=== PATIENT | male | born 1995 | race Caucasian/White ===

== ENCOUNTER 2018-12-08 11:00 | Emergency (ER) | payer SELFPAY ==
[~2018-12-08] VITALS: Ht 162.6 cm; Wt 108.4 kg
[2018-12-08 11:09] VITALS: Ht 162.6 cm; Wt 108.4 kg
[2018-12-08 12:53] LABS: CALCIUM 10.3 mg/dL (8.5-10.1); CARBON DIOXIDE 30.7 mmol/L (21-32); CHLORIDE SERUM 101 mmol/L (98-107); CREATININE SERUM 0.9 mg/dL (0.7-1.3); GFR1 > 60 mL/min; GLUCOSE SERUM 125 mg/dL (74-106); POTASSIUM SERUM 4.1 mmol/L (3.5-5.1); SODIUM SERUM 141 mmol/L (136-145)
[2018-12-08 12:55] LABS: PLATELET COUNT 267 x10^3mcL (130-400); RED CELL DISTRIBUTION WIDTH 13.1 % (11.5-14.5)
[2018-12-08 13:05] LABS: ALKALINE PHOSPHATASE 74 U/L (46-116); ALT/SGPT 54 U/L (16-63); AST/SGOT 10 U/L (15-37); BILIRUBIN TOTAL 0.8 mg/dL (0.20-1.00)
[2018-12-08 13:13] LABS: TOTAL PROTEIN, SERUM 8.6 g/dL (6.4-8.2)
[2018-12-08 14:11] LABS: BAND NEUTROPHIL 0 % (0-10); BASOPHIL 0 % (0-2); MONOCYTE 11 % (0-7); SEGMENTED NEUTROPHILS 81 % (37-75)
[2018-12-08 14:13] LABS: PLATELET MORPHOLOGY PLATELETS NORMAL; rbc morphology (normal/abnorm) ABNORMAL (NORMAL)
[2018-12-08 16:17] VITALS: BP 117/72
== END 2018-12-08 16:17 | disposition home or self-care (01) ==
LOC: ED 11:00
PROVIDERS: Emergency Medicine
DX: J36 Peritonsillar abscess (principal); Z88.0 Allergy status to penicillin
CPT/HCPCS: J0696; J1100; J1885; J3490; J7060

== ENCOUNTER 2019-01-06 12:00 | Emergency (ER) | payer MEDICAID ==
[~2019-01-06] VITALS: Ht 162.6 cm; Wt 107.5 kg
[2019-01-06 12:22] VITALS: Ht 162.6 cm; Wt 107.5 kg
[2019-01-06 14:40] VITALS: BP 130/71
== END 2019-01-06 14:40 | disposition home or self-care (01) ==
LOC: ED 12:00
DX: S83.91XA Sprain of unspecified site of right knee, initial encounter (principal); Z88.0 Allergy status to penicillin; X58.XXXA Exposure to other specified factors, initial encounter; Y93.89 Activity, other specified; Y92.89 Other specified places as the place of occurrence of the external cause; Y99.8 Other external cause status
CPT/HCPCS: J1885

== ENCOUNTER 2019-05-26 14:41 | Emergency (ER) | payer OTHER ==
[~2019-05-26] VITALS: Ht 165.1 cm; Wt 108.9 kg
[2019-05-26 14:44] VITALS: Ht 165.1 cm; Wt 108.9 kg
[2019-05-26 17:08] VITALS: BP 144/82
== END 2019-05-26 17:17 | disposition home or self-care (01) ==
LOC: ED 14:41
DX: J03.90 Acute tonsillitis, unspecified (principal); Z88.0 Allergy status to penicillin

== ENCOUNTER 2019-05-27 15:36 | Emergency (ER) | payer OTHER ==
[~2019-05-27] VITALS: Ht 165.1 cm; Wt 106.6 kg
[2019-05-27 15:59] VITALS: Ht 165.1 cm; Wt 106.6 kg
[2019-05-27 17:30] VITALS: BP 125/62
== END 2019-05-27 17:30 | disposition home or self-care (01) ==
LOC: ED 15:36
DX: J03.90 Acute tonsillitis, unspecified (principal); R42 Dizziness and giddiness; Z88.0 Allergy status to penicillin